=== PATIENT | female | born 1955 | race Caucasian/White ===

== ENCOUNTER 2024-04-05 12:04 | Emergency (ER) | payer OTHER ==
[~2024-04-05] VITALS: Ht 154.9 cm; Wt 81.7 kg
[~2024-04-05 12:04] MED LIST: ACYC400; HYDACE5 PO; INSULANPEN SC; LEVSOD50; METF500 PO; NAPR550 PO; Novolog Fl100 UNIT/1
[2024-04-05] MEDS ORDERED: Ibuprofen 600 MG Tab PO ONE (13:25)
[2024-04-05] MEDS ORDERED: JARDIANCE25 MG PO (13:37)
[2024-04-05] MEDS ORDERED: RYBELSUS3 MG PO (13:37)
[2024-04-05] MEDS ORDERED: OZEMPIC1 MG/0.72 SQ (13:37)
[2024-04-05 14:14] VITALS: BP 146/83
[2024-04-05] MEDS ORDERED: CYCL10 PO (14:33)
== END 2024-04-05 16:02 | disposition home or self-care (01) ==
LOC: ER 12:04
DX: M26.602 Left temporomandibular joint disorder, unspecified (principal); H93.11 Tinnitus, right ear; Z79.4 Long term (current) use of insulin; Z79.84 Long term (current) use of oral hypoglycemic drugs
CPT/HCPCS: 70110; 99283-25

== ENCOUNTER 2025-03-05 10:54 | Day surgery (SDC) | payer OTHER ==
[~2025-03-05] VITALS: Ht 154.9 cm; Wt 82.3 kg
[~2025-03-05 10:54] MED LIST changes: +CYCL10 PO; +JARDIANCE25 MG PO; +OZEMPIC1 MG/0.72 SQ; +RYBELSUS3 MG PO
[2025-03-05] MEDS ORDERED: FentaNYL Citrate 50 MCG/ML 2 ML Injection ONE (11:46)
[2025-03-05] MEDS ORDERED: Dexmedetomidine HCL 200 MCG / 2 ML ONE (11:46)
[2025-03-05] MEDS ORDERED: Midazolam HCl 1MG / ML 2ML Vial ONE (11:46)
[2025-03-05] MEDS ORDERED: Bupivacaine 0.5% HCl 5 MG/ML 30MLVIAL ONE (11:47)
[2025-03-05] MEDS ORDERED: propofoL 100 ML IV ONE (11:47)
[2025-03-05] MEDS ORDERED: Lidocaine 2%-Epineph 1:200000 20 ML SDV ONE (11:47)
[2025-03-05] MEDS ORDERED: ATOR10 PO (11:50)
[2025-03-05] MEDS ORDERED: Lactated Ringer's 1,000 ML IV ONE ×2 (12:16→12:20)
[2025-03-05] MEDS ORDERED: CeFAZolin Sodium 2,000 MG VIAL ONE (12:19)
[2025-03-05] MEDS ORDERED: Acetaminophen 500 MG Tab ONE (12:43)
[2025-03-05] MEDS ORDERED: Phenylephrine HCl 100 MCG/ML-NS 10MLSYR (1MG/10ML) ONE (13:02)
[2025-03-05] MEDS ORDERED: Dexamethasone Sod Phos 10 MG/ML 1ML VIAL ONE (13:07)
[2025-03-05] MEDS ORDERED: Ketorolac Tromethamine 30mg Vial ONE (13:07)
[2025-03-05] MEDS ORDERED: Ondansetron HCl 2 MG / ML 2ML Vial ONE (13:07)
[2025-03-05] MEDS ORDERED: Metoclopramide HCl 5MG / ML 2ML Vial ONE (13:07)
[2025-03-05 14:28] VITALS: BP 122/54
--- NOTE | 2025-03-05 14:28 | NUR ---
03/05/25 1428 Nandini Steele PT TRANSFERRED TO SDU DROWSY, BUT ORIENTED. PT DENIES PAIN/NAUSEA, VSS, ON RA. PT STATES R HAND NUMB TO TOUCH, SLIGHT MOVEMENT NOTED. NO VISIBLE SIGNS OF DISTRESS NOTED.
== END 2025-03-05 15:14 | disposition home or self-care (01) ==
LOC: ORSCSDS 10:54
PROVIDERS: Orthopaedic Surgery
PROC: 0PSH04Z Reposition Right Radius with Internal Fixation Device, Open Approach (ICD-10-PCS; principal; 2025-03-05 12:30)
DX: S52.571A Other intraarticular fracture of lower end of right radius, initial encounter for closed fracture (principal); E78.5 Hyperlipidemia, unspecified; E11.9 Type 2 diabetes mellitus without complications; G51.0 Bell's palsy; Z79.85 Long-term (current) use of injectable non-insulin antidiabetic drugs; Z79.84 Long term (current) use of oral hypoglycemic drugs; Z79.899 Other long term (current) drug therapy; E66.9 Obesity, unspecified; Z68.34 Body mass index [BMI] 34.0-34.9, adult; F17.210 Nicotine dependence, cigarettes, uncomplicated; I10 Essential (primary) hypertension
CPT/HCPCS: 82947; A9270; C1713; J0690; J1100; J1885; J2250; J2371; J2405; J2704; J2765; J3010; J7120